=== PATIENT | female | born 1945 | race Caucasian/White ===

== ENCOUNTER 2021-05-31 14:44 | Inpatient (IN) | payer MEDICARE, OTHER, SELFPAY ==
--- NOTE | ~2021-05-31 | US_ITS ---
EXAMINATION: US ABDOMEN COMPLETE CLINICAL INFORMATION: Elevated LFTs. COMPARISON: None TECHNIQUE: Real-time imaging of the abdominal viscera. FINDINGS: PANCREAS: Not well visualized ABDOMINAL AORTA: There is evidence of atherosclerotic disease. The proximal, mid, and distal segments are normal in caliber. INFERIOR VENA CAVA: Visualized portions are normal. LIVER: The liver is normal in size. The liver contour is normal. Liver echotexture is increased. No focal hepatic lesion. There is no intrahepatic biliary duct dilatation seen. GALLBLADDER: There may be some sludge in the gallbladder. The gallbladder is physiologically distended without evidence of stones, polyps, wall thickening or pericholecystic fluid. COMMON BILE DUCT: Normal in caliber measuring 0.5 cm in diameter. RIGHT KIDNEY: Normal. No hydronephrosis. No renal calculi or focal parenchymal lesions. The kidney measures 10.2 cm in maximum dimension. LEFT KIDNEY: Normal. No hydronephrosis. No renal calculi or focal parenchymal lesions. The kidney measures 10.5 cm in maximum dimension. SPLEEN: Normal. The spleen measures 7.8 cm in maximum dimension. FREE FLUID: None. US/US abdomen complete IMPRESSION: Echogenic liver. Small amount of sludge in the gallbladder. Visualization of the pancreas. Atherosclerotic disease.
--- NOTE | 2021-05-31 16:00 | HO.PSYADMNOT ---
HPI Date of Service: 05/31/21 Chief Complaint: Unspecified anxiety disorder Sources of Information: patient interviewed, chart reviewed and crisis/core team assessment reviewed HPI Subjective Notes: Pereira Warning and 3 Day Narrative: Ms. Cardoso is a 75 year-old woman with hx of MDD who was brought to [facility] after suicide attempt. Per notes from [place], pt had wrote a note to her saying good bye.' She took unknown amount of percocet. She was admitted medically. She was given acetylcystine for elevated levels of acetaminophen. She had 2L oxygen but weaned off prior to discharge. Utox was negative. On the unit, pt presents as pleasant. She reports she has been feeling more overwhelmed, due to financial stressors, learned she has to replace roof, her had stroke last year and she is main caregiver. She adamantly denies suicidal ideation. She is tearful regretting OD. She states she would never do anything like that. She denies previous hx of suicide attempt. She denies hx of VH/AH. She reports remote treatment of MDD with sertraline but had GI side effects. She also reports she tried prozac but also had GI side effects. She does not want to start an antidepressant but open to referrals for therapy. She would like to be discharged as soon as possible. She reports good sleep. She reports fair appetite. Past Psychiatric History: Inpt: none OP: none Suicide attempts: none prior to this one Past med trials: sertraline (GI side effects), prozac (GI side effects), wellbutrin mostly for smoking cessation but reports side effects (unknown) Medical Evaluation Reviewed: Yes [facility] Medical History COPD (chronic obstructive pulmonary disease) Emphysema of lung Irritable bowel Surgical History H/O mastectomy Family History: denies Social History: lives with of over 50 years. 3 adult children. Substance History: none Trauma History: denies Diagnostics Labs Results: 06/02/21 06:50 06/01/21 08:34 Meds/Allergies Meds Home Medications Acetaminophen (Acetaminophen 325 Mg Tablet) 650 mg PO Q6H PRN PRN Reason: Headache/Pain Mild Scale (1-3) Al Hydroxide/Mg Hydroxide (Magnesium Hydrox/Alum Hydrox 30 Ml Oral.Susp) 30 ml PO Q6H PRN PRN Reason: Heartburn/Nausea Albuterol Sulfate (Albuterol Sulfate 90 Mcg 8 Gm Inhaler) 2 puff INHALE RQ6H PRN PRN Reason: shortness of breath; wheezing Last Admin: 06/01/21 13:22 Dose: 2 puff Documented by: Benzocaine (Throat Lozenge, Medicated Lozenge) 1 lozenge MUCOUS MEM Q2H PRN PRN Reason: Sore Throat Last Admin: 05/31/21 21:31 Dose: 1 lozenge Documented by: Hydroxyzine HCl (Hydroxyzine Hcl 25 Mg Tablet) 25 mg PO Q6H PRN PRN Reason: Anxiety Magnesium Hydroxide (Milk Of Magnesia 30 Ml Oral.Susp) 30 ml PO DAILY PRN PRN Reason: Constipation Trazodone HCl (Trazodone Hcl 50 Mg Tablet) 50 mg PO BEDTIME PRN PRN Reason: Insomnia Allergies Allergies Allergy/AdvReac Type Severity Reaction Status Date / Time latex AdvReac Unknown Unknown Verified 05/31/21 15:47 Mental Status Exam Mental Status Exam Narrative: Appearance: casually groomed, good hygiene, in NAD Behavior: calm, cooperative Psychomotor: no agitation or retardation noted Speech: clear, normal rate/rhythm/volume, spontaneous TP: linear TC: no signs of psychosis, feeling overwhelmed but remorseful of OD. Mood: better' Affect: congruent, brighter at times VH/AH: none SI/HI: none Delusions: none Insight/judgment: fair x 2. Memory/cog: alert, oriented x 3. not formally tested. Assessment & Plan Assessment & Plan (1) MDD (major depressive disorder), recurrent severe, without psychosis: Status: Acute Code(s): F33.2 - Major depressive disorder, recurrent severe without psychotic features Plan Ms. Cardoso is a 75 year-old woman with hx fo MDD admitted after suicide attempt, via OD on percocet, admitted medically at [place], given acetylcholyne infusion, briefly on nasal cannula 2L butweaned off prior to discharge from medical floor. Pt reports was overwhelmed, more than she thought she was due to financial stressors caring for who had stroke. Adamantly denies SI and regrets suicide attempt. We discussed risks , benefits and alternative treatment options. She declines starting antidepressant as she had 3 trials in past and according to her she had side effects, mostly GI. She is open to referral for therapy but declines medications. PLAN 1. Admit to [facility]- [facility] day, 15 minutes checks 2. declines starting antidepressant. 3. Obtain collateral info 4. Aftercare planning. Patient educated on: diagnosis Reason for continued inpatient stay Substantial Risk for: harm to self
[2021-05-31 16:17] VITALS: BP 179/92; PULSE 90; RESP 16; TEMP 36.8; O2SAT 94
[2021-05-31 16:19] VITALS: BMI 34.3
--- NOTE | 2021-05-31 18:27 | PC.NURSE ---
Patient arrived on unit this afternoon at approximately 1530 via stretcher. Patient was an admit from [facility] where she had been admitted and treated following an overdose of oxycodone/acetaminophen 5-325 as well as pantroprazole. Patient was admitted to a medical floor for management of acetaminophen opiate toxic ingestion. Upon admission patient vital signs were taken. BP noted to be elevated at 179/92. Vitals otherwise normal. Patient presented with pleasant demeanor. Alert and oriented x4. Denied SI/HI. Endorsed Anxiety/Depression 05/04. Patient appeared well groomed, neatly dressed in street clothes and was cooperative with admission process.During admission process patient stated that, I'm glad it (overdose) didn't work. I want to be here. 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 Patient is open to process and is future oriented. Upon completion of admission patient was oriented to unit, given coffee and waited patiently for her dinner. Appetite was good. Patient consumed 75% of meal. All releases were signed by patient other than psychiatrist and therapist which patient does not have at this time. Patient does have a PCP and a Speech Pathology Supervisor. Past medical history includes COPD/Emphysema, L breast CA, IBS which is under control. Other than vitamins patients only med is Ventolin inhaler which she uses as needed for wheezing. This is first Psych admission for patient who signed a CV and then a 3 day notice which will be up on 06/05/21. Patient was seen by Fatou Falcon. PCP will be notified during business hours tomorrow. Patient was last observed resting quietly in darkened room.
[2021-05-31 21:01] VITALS: BP 140/66; PULSE 77; RESP 17; TEMP 36.2; O2SAT 93
[2021-05-31] MEDS: Throat Lozenge, Medicated LOZENGE 1 LOZENGE MUCOUS MEM (21:31)
[2021-06-01 06:00] VITALS: BP 172/82; PULSE 81; TEMP 36.2; O2SAT 95
[2021-06-01 07:00] VITALS: BMI 32.1
[2021-06-01 09:04] LABS: Estimated Average Glucose 114 mg/dL; Hemoglobin A1c % 5.6 %
[2021-06-01 10:19] LABS: Alanine Aminotransferase 96 U/L (0-31); Albumin Level 4.5 g/dL (3.5-5.0); Alkaline Phosphatase 79 U/L (39-117); Anion Gap 11 (12-20); Aspartate Amino Transferase 73 U/L (5-31); Bilirubin Total 0.5 mg/dL (0.0-1.0); Blood Urea Nitrogen 13 mg/dL (9-16); Calcium 10.2 mg/dL (8.4-10.2); Carbon Dioxide 32 mmol/L (22-29); Chloride 102 mmol/L (96-108); Cholesterol 284 mg/dL; Creatinine Clr Calc Pharmacy 63.9; Estimated Glomerular Filt Rate > 60; Glucose Fasting 119 mg/dL (60-99); HDL Cholesterol 58 mg/dL; LDL Cholesterol Calculated 172 mg/dl; Sodium 141 mmol/L (135-145); Total Protein 7.8 g/dL (6.5-8.0); Triglycerides 271 mg/dL
[2021-06-01 10:39] LABS: Thyroid Stimulating Hormone 0.72 uIU/mL (0.32-4.0)
[2021-06-01 11:27] LABS: Folate > 20.0 ng/mL (> or = 4.0); Vitamin B12 719 pg/mL (200-900)
--- NOTE | 2021-06-01 13:20 | HO.PSYCHPN ---
Subjective Subjective Date of Service: 06/01/21 Reason For Visit: Unspecified anxiety disorder Subjective Notes: Conditional Voluntary Interim History: Pt continues to denied SI. Adamantly regrets OD. She reports I would never do anything like that She reports sleeping and eating well. No VH/AH. She wants to go home soon, continues to decline antidepressant even when explained that there are other options with less GI side effects. Review of Systems Review of Systems As above. Constitutional: Reports no additional constitutional complaints Cardiovascular: Denies dyspnea Respiratory: Denies dyspnea Gastrointestinal: Denies constipation and Denies nausea Mental Status Exam Mental Status Exam Narrative: Appearance: casually groomed, good hygiene, in NAD Behavior: calm, cooperative Psychomotor: no agitation or retardation noted Speech: clear, normal rate/rhythm/volume, spontaneous TP: linear TC: no signs of psychosis, feeling overwhelmed but remorseful of OD. Mood: better' Affect: congruent, brighter at times VH/AH: none SI/HI: none Delusions: none Insight/judgment: fair x 2. Memory/cog: alert, oriented x 3. not formally tested. Diagnostics Vital Signs (24Hr): Vital Signs - 24 hr 06/01/21 18:00 06/02/21 06:00 Temperature 97 F 97.8 F Pulse Rate 84 83 Respiratory Rate 16 16 Blood Pressure 139/77 195/82 H Pulse Oximetry 94 94 BMI result Body Mass Index 32.1 Labs Results: 06/02/21 06:50 06/01/21 08:34 Labs: Laboratory Results - last 48 hr 06/01/21 06/01/21 06/01/21 08:34 08:34 08:35 WBC RBC Hgb Hct MCV MCH MCHC RDW Plt Count MPV Immature Gran % (Auto) Neut % (Auto) Lymph % (Auto) [place] % (Auto) Eos % (Auto) Baso % (Auto) Lymph # (Auto) [place] # (Auto) Eos # (Auto) Baso # (Auto) Abs Immat Gran (auto) Absolute Neuts (auto) Absolute Nucleated RBC Nucleated RBC % (auto) PT INR Sodium 141 Potassium 4.0 Chloride 102 Carbon Dioxide 32 H Anion Gap 11 L BUN 13 Creatinine 0.80 Estim Creat Clear Calc 63.9 Estimated GFR > 60 Fasting Glucose 119 H Estimat Average Glucose 114 Hemoglobin A1c % 5.6 Calcium 10.2 Total Bilirubin 0.5 Direct Bilirubin AST 73 H ALT 96 H Alkaline Phosphatase 79 Total Protein 7.8 Albumin 4.5 Triglycerides 271 Cholesterol 284 LDL Cholesterol, Calc 172 HDL Cholesterol 58 Vitamin B12 719 Folate > 20.0 TSH 0.72 Hepatitis A IgM Ab Hep Bs Antigen Hep Bs Antibody Hep B Core Total Ab Hepatitis C Ab (EIA) 06/02/21 06/02/21 06/02/21 06:50 06:50 06:50 WBC 7.3 RBC 3.90 L Hgb 13.0 Hct 39.2 MCV 100.5 H MCH 33.3 H MCHC 33.2 RDW 12.7 Plt Count 286 MPV 9.4 Immature Gran % (Auto) 0.4 Neut % (Auto) 72.3 Lymph % (Auto) 15.9 L [place] % (Auto) 8.5 Eos % (Auto) 2.5 Baso % (Auto) 0.4 Lymph # (Auto) 1.2 [place] # (Auto) 0.6 Eos # (Auto) 0.2 Baso # (Auto) 0.0 Abs Immat Gran (auto) 0.03 Absolute Neuts (auto) 5.3 Absolute Nucleated RBC 0.000 Nucleated RBC % (auto) 0.0 PT 11.0 INR 1.0 Sodium Potassium Chloride Carbon Dioxide Anion Gap BUN Creatinine Estim Creat Clear Calc Estimated GFR Fasting Glucose Estimat Average Glucose Hemoglobin A1c % Calcium Total Bilirubin 0.6 Direct Bilirubin 0.2 AST 48 H ALT 82 H Alkaline Phosphatase 72 Total Protein 7.3 Albumin 4.2 Triglycerides Cholesterol LDL Cholesterol, Calc HDL Cholesterol Vitamin B12 Folate TSH Hepatitis A IgM Ab Hep Bs Antigen Hep Bs Antibody Hep B Core Total Ab Hepatitis C Ab (EIA) 06/02/21 06:50 WBC RBC Hgb Hct MCV MCH MCHC RDW Plt Count MPV Immature Gran % (Auto) Neut % (Auto) Lymph % (Auto) [place] % (Auto) Eos % (Auto) Baso % (Auto) Lymph # (Auto) [place] # (Auto) Eos # (Auto) Baso # (Auto) Abs Immat Gran (auto) Absolute Neuts (auto) Absolute Nucleated RBC Nucleated RBC % (auto) PT INR Sodium Potassium Chloride Carbon Dioxide Anion Gap BUN Creatinine Estim Creat Clear Calc Estimated GFR Fasting Glucose Estimat Average Glucose Hemoglobin A1c % Calcium Total Bilirubin Direct Bilirubin AST ALT Alkaline Phosphatase Total Protein Albumin Triglycerides Cholesterol LDL Cholesterol, Calc HDL Cholesterol Vitamin B12 Folate TSH Hepatitis A IgM Ab Nonreactive Hep Bs Antigen Negative Hep Bs Antibody NONREACTIVE Hep B Core Total Ab Nonreactive Hepatitis C Ab (EIA) Nonreactive Imaging Radiology Impressions: ITS Impressions Abdomen Ultrasound 06/02/21 08:45 IMPRESSION: Echogenic liver. Small amount of sludge in the gallbladder. Visualization of the pancreas. Atherosclerotic disease. Medications Medications Current Medications Acetaminophen (Acetaminophen 325 Mg Tablet) 650 mg PO Q6H PRN PRN Reason: Headache/Pain Mild Scale (1-3) Al Hydroxide/Mg Hydroxide (Magnesium Hydrox/Alum Hydrox 30 Ml Oral.Susp) 30 ml PO Q6H PRN PRN Reason: Heartburn/Nausea Albuterol Sulfate (Albuterol Sulfate 90 Mcg 8 Gm Inhaler) 2 puff INHALE RQ6H PRN PRN Reason: shortness of breath; wheezing Last Admin: 06/01/21 13:22 Dose: 2 puff Documented by: Benzocaine (Throat Lozenge, Medicated Lozenge) 1 lozenge MUCOUS MEM Q2H PRN PRN Reason: Sore Throat Last Admin: 05/31/21 21:31 Dose: 1 lozenge Documented by: Hydroxyzine HCl (Hydroxyzine Hcl 25 Mg Tablet) 25 mg PO Q6H PRN PRN Reason: Anxiety Magnesium Hydroxide (Milk Of Magnesia 30 Ml Oral.Susp) 30 ml PO DAILY PRN PRN Reason: Constipation Trazodone HCl (Trazodone Hcl 50 Mg Tablet) 50 mg PO BEDTIME PRN PRN Reason: Insomnia Allergies Allergies Allergy/AdvReac Type Severity Reaction Status Date / Time latex AdvReac Unknown Unknown Verified 05/31/21 15:47 Assessment & Plan Assessment & Plan (1) MDD (major depressive disorder), recurrent severe, without psychosis: Status: Acute Code(s): F33.2 - Major depressive disorder, recurrent severe without psychotic features Plan Ms. Cardoso is a 75 year-old woman with hx fo MDD admitted after suicide attempt, via OD on percocet, admitted medically at [place], given acetylcholyne infusion, briefly on nasal cannula 2L butweaned off prior to discharge from medical floor. Pt reports was overwhelmed, more than she thought she was due to financial stressors caring for who had stroke. Adamantly denies SI and regrets suicide attempt. We discussed risks , benefits and alternative treatment options. She declines starting antidepressant as she had 3 trials in past and according to her she had side effects, mostly GI. She is open to referral for therapy but declines medications. PLAN 1. Admit to [facility]- 3 day, 15 minutes checks 2. declines starting antidepressant. 3. Obtain collateral info 4. Aftercare planning. I spent minutes with the patient and/or on the patient floor today, greater than?50% of which was spent counseling/coordinating care. Reason for contiued inpatient stay Substantial Risk for: inability to function
[2021-06-01] MEDS: Albuterol Sulfate 90 MCG 8 GM INHALER 2 PUFF INHALE (13:22)
--- NOTE | 2021-06-01 13:27 | PM.IMCN ---
History of Present Illness Data of Consult Service Date: 06/01/21 Primary Care Provider: Sarah Beth Bay MD HPI Reason for consult: new admit 75-year-old female who was transferred from [facility] for suiccidal attemp , tyelenol toxicity: Patient received n-acetylcystenine as per normal hospital discharge papers., and sent to the [facility] for suicidal attempt. Patient seen and examined-she seems anxious, sitting with the family. Denies any new complaint of chest pain or shortness of breath or abdominal pain or fever or chills or nausea or vomiting Denies any cough Denies any weakness or numbness. Review of Systems Review of Systems: As above. [facility] Medical History COPD (chronic obstructive pulmonary disease) Emphysema of lung Irritable bowel Pertinent family history: Denies any family history including suicidal ideation, COPD. Surgical History H/O mastectomy Social History Household Members: Spouse Housing: House Do you presently have visiting nurse or other home services: No Patient Tobacco Use Status: Former Tobacco user Quit Date: 3 years Tobacco use type: Cigarette Smoked in Last 30 Days: No e-Cigarette/Vaping Use: Former Use Patient Interested in Nicotine Replacement: No Patient Given Instructions on How to Stop Smoking: No Second Hand Smoke Exposure: No Use of substances other than those prescribed or required for medical reasons: No Currently Displaying Signs/Symptoms of Drug Intoxication Withdrawal: No Have you been hit, kicked, punched, or otherwise hurt by someone within the past year? If so, by whom?: No Do you feel safe in your current relationship?: Yes Is there a partner from a previous relationship who is making you feel unsafe now?: No Are you made to feel afraid or neglected: No Advance Directives: Yes Advance Directives Information Provided: No Advance Directives on File: No Do you have thoughts of harming others: None Do you have a plan to hurt others: No Plan Recently lost weight without trying: No How much weight loss: Not applicable Eating poorly because of decreased appetite: Yes Nutrition screen score: 1 Patient : No : No Poor oral hygiene: No Meds Allergies Allergy/AdvReac Type Severity Reaction Status Date / Time latex AdvReac Unknown Unknown Verified 05/31/21 15:47 Active Medications: Current Medications Acetaminophen (Acetaminophen 325 Mg Tablet) 650 mg PO Q6H PRN PRN Reason: Headache/Pain Mild Scale (1-3) Al Hydroxide/Mg Hydroxide (Magnesium Hydrox/Alum Hydrox 30 Ml Oral.Susp) 30 ml PO Q6H PRN PRN Reason: Heartburn/Nausea Albuterol Sulfate (Albuterol Sulfate 90 Mcg 8 Gm Inhaler) 2 puff INHALE RQ6H PRN PRN Reason: shortness of breath; wheezing Last Admin: 06/01/21 13:22 Dose: 2 puff Documented by: Benzocaine (Throat Lozenge, Medicated Lozenge) 1 lozenge MUCOUS MEM Q2H PRN PRN Reason: Sore Throat Last Admin: 05/31/21 21:31 Dose: 1 lozenge Documented by: Hydroxyzine HCl (Hydroxyzine Hcl 25 Mg Tablet) 25 mg PO Q6H PRN PRN Reason: Anxiety Magnesium Hydroxide (Milk Of Magnesia 30 Ml Oral.Susp) 30 ml PO DAILY PRN PRN Reason: Constipation Trazodone HCl (Trazodone Hcl 50 Mg Tablet) 50 mg PO BEDTIME PRN PRN Reason: Insomnia Home Medications Medication Instructions Recorded Confirmed Last Taken Type Calcium 600 + D(3) 1 tab PO QAM MDD 1 05/31/21 05/31/21 Unknown History Multivitamin And Mineral 1 dose PO DAILY MDD 1 05/31/21 05/31/21 Unknown History albuterol 2 inhaler PO Q4-6H PRN MDD 2 05/31/21 05/31/21 Unknown History melatonin 2 mg PO NEEDED PRN MDD 2 05/31/21 05/31/21 Unknown History polycarbophil 1 dose PO DAILY MDD 1 05/31/21 05/31/21 Unknown History Physical Exam Vital Signs and Narrative: Vital Signs: Last Vital Signs Temp 97.1 F 05/31/21 21:01 Pulse 77 05/31/21 21:01 Resp 17 05/31/21 21:01 BP 140/66 H 05/31/21 21:01 Pulse Ox 93 05/31/21 21:01 BMI result Body Mass Index 34.3 Appearance: Alert.? Oriented X3.? not in distress.? Eyes: Pupils equal, round and reactive to light.? Sclera nonicteric.? ENT: Pharynx normal.? Moist mucous membranes. cvs: rrr, [id number]. res: clear to auscultation ,no rhonchii or wheezing abd: no rebound or guarding ,nt, bs present. ext pulses present , no cyanosis. neuro: axo3 , nonfocal. Results Labs CBC and Chem 7: 06/01/21 08:34 Labs: Laboratory Results - last 24 hr 06/01/21 06/01/21 06/01/21 08:34 08:34 08:35 Anion Gap 11 L Estim Creat Clear Calc 63.9 Estimated GFR > 60 Fasting Glucose 119 H Estimat Average Glucose 114 Hemoglobin A1c % 5.6 Calcium 10.2 Total Bilirubin 0.5 AST 73 H ALT 96 H Alkaline Phosphatase 79 Total Protein 7.8 Albumin 4.5 Triglycerides 271 Cholesterol 284 LDL Cholesterol, Calc 172 HDL Cholesterol 58 Vitamin B12 719 Folate > 20.0 TSH 0.72 Assessment and Plan (1) Elevated liver enzymes: Status: Acute Plan 75-year-old of female with history of COPD/emphysema, was admitted to [facility] for Tylenol toxicity received N-acetylcysteine, afterwards was afterward medical discharged and sent to the hospital for psychiatric evaluation for suicidal attempt. 1. COPD/emphysema: Continue home albuterol. 2. IBS: Denies any GI complaint currently, not on any medications as per patient. 3. Recent suicidal attempt with Tylenol as above. received N-acetylcysteine, afterwards was afterward medical clear Seems slightly elevated LFTs Otherwise and does not endorse any complaints. Please monitor LFT, consider GI evaluation Above management discussed with the psych team in detail length, please call us for any questions.
--- NOTE | 2021-06-01 16:23 | PM.GICN ---
History of Present Illness Data of Consult Service Date: 06/01/21 Requesting physician: Bethany Martell Primary Care Provider: Sarah Beth Bay MD HPI Reason for consult: elevated lft's ,reccent tylenol toxicity received Nacetylcystenie 75 YF transferred to [facility] Psyche from [facility] after management of acetaminophen toxicity with N acetyl cystine. On 05/28/21 Pt had an argument with her and took several tablets of percocet and codeine pills (from 3 bottles). On 05/29/21 She was taken to [facility] ED by paramedics. She was diagnosed with acute metabolic encephalopathy due to Opiod OD and treated with Narcan 2mg x 2 and became responsive She later regretted taking the medications and denied being suicidal anymore. Admission labs were normal hct 43.8, AST 26, ALT 36, TB 0.3, INR 1.1 Acetaminophen level was 53 on admission, decreased to 37 at 6 am, FU level was < 5 05/28/21 repeat labs showed elevated LFTs - AST 53, ALT 48, AP 87 Patient denies past hx of liver disease, hepatitis or jaundice. Pt admits to symptoms of heartburn and denies dysphagia, recent change in appetite. She admits to wt gain after she quitted smoking. Pt has IBS with constipation and takes 4 fiber pills a day. Denies recent change in bowel habits, diarrhea, black stools or rectal bleeding. Patient denies major cardiac or pulmonary problems. Denies being on chronic anticoagulation. Pt denies ETOH abuse and quitted smoking 3 yrs ago. Pt is and has 3 children. She worked at [employer]. Patient denies known family history of liver disease, colon polyps, other GI malignancies. Review of Systems Review of Systems: As above. Yes all other systems are reviewed and are negative [facility] Past Medical History Medical History COPD (chronic obstructive pulmonary disease) Emphysema of lung Irritable bowel Surgical History Surgical History H/O mastectomy Social History Social History Household Members: Spouse Housing: House Do you presently have visiting nurse or other home services: No Patient Tobacco Use Status: Former Tobacco user Quit Date: 3 years Tobacco use type: Cigarette e-Cigarette/Vaping Use: Former Use Second Hand Smoke Exposure: No service: No Sexual orientation: Straight/Heterosexual Meds Allergies Allergy/AdvReac Type Severity Reaction Status Date / Time latex AdvReac Unknown Unknown Verified 05/31/21 15:47 Active Medications: Current Medications Acetaminophen (Acetaminophen 325 Mg Tablet) 650 mg PO Q6H PRN PRN Reason: Headache/Pain Mild Scale (1-3) Al Hydroxide/Mg Hydroxide (Magnesium Hydrox/Alum Hydrox 30 Ml Oral.Susp) 30 ml PO Q6H PRN PRN Reason: Heartburn/Nausea Albuterol Sulfate (Albuterol Sulfate 90 Mcg 8 Gm Inhaler) 2 puff INHALE RQ6H PRN PRN Reason: shortness of breath; wheezing Last Admin: 06/01/21 13:22 Dose: 2 puff Documented by: Benzocaine (Throat Lozenge, Medicated Lozenge) 1 lozenge MUCOUS MEM Q2H PRN PRN Reason: Sore Throat Last Admin: 05/31/21 21:31 Dose: 1 lozenge Documented by: Hydroxyzine HCl (Hydroxyzine Hcl 25 Mg Tablet) 25 mg PO Q6H PRN PRN Reason: Anxiety Magnesium Hydroxide (Milk Of Magnesia 30 Ml Oral.Susp) 30 ml PO DAILY PRN PRN Reason: Constipation Trazodone HCl (Trazodone Hcl 50 Mg Tablet) 50 mg PO BEDTIME PRN PRN Reason: Insomnia Home Medications Medication Instructions Recorded Confirmed Last Taken Type Calcium 600 + D(3) 1 tab PO QAM MDD 1 05/31/21 05/31/21 Unknown History Multivitamin And Mineral 1 dose PO DAILY MDD 1 05/31/21 05/31/21 Unknown History albuterol 2 inhaler PO Q4-6H PRN MDD 2 05/31/21 05/31/21 Unknown History melatonin 2 mg PO NEEDED PRN MDD 2 05/31/21 05/31/21 Unknown History polycarbophil 1 dose PO DAILY MDD 1 05/31/21 05/31/21 Unknown History umeclidinium 62.5 mcg-vilanterol 1 inh INHALATION DAILY 06/01/21 06/01/21 Unknown History 25 mcg/actuation powdr for inhalation (Anoro Ellipta) Physical Exam Vital Signs: Vital Signs: Last Vital Signs Temp 97.1 F 05/31/21 21:01 Pulse 77 05/31/21 21:01 Resp 17 05/31/21 21:01 BP 140/66 H 05/31/21 21:01 Pulse Ox 93 05/31/21 21:01 BMI result Body Mass Index 34.3 Const: General: healthy appearing and no acute distress Nutritional Appearance: obese Orientation/consciousness: patient oriented x3 Limitations: no limitations HENMT: Head: Yes normal to inspection Ears: hearing grossly normal bilaterally Mouth: Normal oral and palatal mucosa present Eyes: Sclerae: sclerae normal Pupils: Equal, round and reactive pupils present Neck: Neck: Yes normal visual inspection Chest: Chest palpation & inspection: normal inspection of the chest Resp: Effort & Inspection: normal respiratory effort Auscultation: clear to auscultation bilaterally Cardio: Palpation: normal PMI Rate: regular rate Rhythm: regular rhythm Heart sounds: S1 normal heart sound present, S2 normal heart sound present and no murmurs GI: Palpation (GI): Soft to palpation, nontender and No hepatosplenomegaly present Auscultation: normal bowel sounds Rectal Exam - Female: deferred Skin: General skin exam: no rashes or lesions noted Neuro: General: patient oriented x3, gait normal and moves all extremities Cranial nerves: Yes Equal, round and reactive pupils present Psych: Appearance: grossly normal Mental Status: mental status grossly normal Results Labs CBC & Chem 7: 06/02/21 06:50 06/01/21 08:34 Labs: BMP 06/01/21 08:34 Sodium 141 Potassium 4.0 Chloride 102 Carbon Dioxide 32 H BUN 13 Creatinine 0.80 Calcium 10.2 Liver Function 06/01/21 Range/Units 08:34 Total Bilirubin 0.5 (0.0-1.0) mg/dL AST 73 H (5-31) U/L ALT 96 H (0-31) U/L Alkaline Phosphatase 79 (39-117) U/L Albumin 4.5 (3.5-5.0) g/dL Assessment and Plan (1) Elevated liver enzymes: Status: Deleted (2) Drug-induced hepatic toxicity: Status: Deleted Plan 75 YF seen at [facility] on 05/28/21 after drug overdose (pantoprazole, oxycodone and acetaminophen). Pt was treated with Narcan and N acetylcysteine. Pt noted to have elevated LFTs on presentation to [facility] which normalized prior to transfer to [facility] on 05/31/21. Recurrent increase in LFTs are likely related to acetaminophen hepatotoxicity versus HINOJOSA related to obesity. Other less likely possibilities include chronic Hep B or C or metabolic liver diseases. RECOMMENDATIONS: 1. Check Hepatitis serologies and abdominal US - order placed. 2. Repeat LFTs in the am I will follow once above studies are available. ADDENDUM FU labs showed improvement in LFTs Hepatitis A, B and C serologies were negative 06/02/21 ABD US SHOWED: LIVER: The liver is normal in size. The liver contour is normal. Liver echotexture is increased. No focal hepatic lesion. There is no intrahepatic biliary duct dilatation seen. GALLBLADDER: There may be some sludge in the gallbladder. The gallbladder is physiologically distended without evidence of stones, polyps, wall thickening or pericholecystic fluid. Procedures Date of Service Date of Service: 06/01/21
[2021-06-01 18:00] VITALS: BP 139/77; PULSE 84; RESP 16; TEMP 36.1; O2SAT 94
[2021-06-02 06:00] VITALS: BP 195/82; PULSE 83; RESP 16; TEMP 36.6; O2SAT 94
[2021-06-02 06:54] LABS: MANUAL DIFF FLAG NO
[2021-06-02 06:57] LABS: Basophils Percent Auto 0.4 % (0-2); Eosinophils Absolute Auto 0.2 X10*3/uL (0.0-0.4); Eosinophils Percent Auto 2.5 % (0-4); Hematocrit 39.2 % (37.0-47.0); Imm Gran Abs Auto 0.03 X10*3/uL (0.00-0.03); Imm Gran Pct Auto 0.4 % (0.0-0.4); Lymphocytes Absolute Auto 1.2 X10*3/uL (1.2-4.9); Lymphocytes Percent Auto 15.9 % (20-40); Mean Corpuscular HGB Conc 33.2 g/dl (31.0-35.0); Mean Corpuscular Hemoglobin 33.3 pg (27.0-33.0); Mean Corpuscular Volume 100.5 fL (80.0-98.0); Mean Platelet Volume 9.4 fL (9.4-12.3); Monocytes Absolute Auto 0.6 X10*3/uL (0.1-1.2); Monocytes Percent Auto 8.5 % (2-11); Neutrophils Absolute Auto 5.3 x10*3/uL (2.0-8.3); Neutrophils Percent Auto 72.3 % (45-73); Platelet Count 286 X10*3/uL (160-400); Red Cell Distribution Width 12.7 % (11.0-16.0); White Blood Count 7.3 X10*3/uL (4.8-10.8)
[2021-06-02 07:27] LABS: Alanine Aminotransferase 82 U/L (0-31); Albumin Level 4.2 g/dL (3.5-5.0); Alkaline Phosphatase 72 U/L (39-117); Aspartate Amino Transferase 48 U/L (5-31); Bilirubin Direct 0.2 mg/dL (0.0-0.5); Bilirubin Total 0.6 mg/dL (0.0-1.0); Total Protein 7.3 g/dL (6.5-8.0)
[2021-06-02 08:07] LABS: HBsAGNum1 0.19 S/CO (0.00-0.99); Hepatitis B Surface Antigen Negative (Negative)
[2021-06-02 08:52] LABS: HBS Num1 0.46 mIU/mL (0-7.99); Hepatitis A Antibody IgM 0.41 Index (0-0.79); Hepatitis B Core Antibody Nonreactive (Nonreactive); ~HepC Num1 0.38 S/CO (0.00-0.79); ~Hepatitis A Antibody IgM Nonreactive (Nonreactive); ~Hepatitis B Surface Antibody NONREACTIVE (Nonreactive); ~Hepatitis C Antibody Nonreactive (Nonreactive)
--- NOTE | 2021-06-02 14:40 | HO.PSYCHPN ---
Subjective Subjective Date of Service: 06/02/21 Reason For Visit: Unspecified anxiety disorder Subjective Notes: Conditional Voluntary and 3 Day Interim History: Pt pleasant. She continues to denied SI/HI. She regrets OD. She reports she can't wait to go back home and will follow up with referrals. Declines antidepressant due to past SE with 3 trials she had. Per nursing, pt is visible in unit, attends groups. No behavioral concerns. Medication Compliance: Yes Review of Systems Review of Systems As above. Constitutional: Reports no additional constitutional complaints Cardiovascular: Denies dyspnea Respiratory: Denies dyspnea Gastrointestinal: Denies constipation and Denies nausea Mental Status Exam Mental Status Exam Narrative: Appearance: casually groomed, good hygiene, in NAD Behavior: calm, cooperative Psychomotor: no agitation or retardation noted Speech: clear, normal rate/rhythm/volume, spontaneous TP: linear TC: no signs of psychosis, feeling overwhelmed but remorseful of OD. Mood: better' Affect: congruent, brighter at times VH/AH: none SI/HI: none Delusions: none Insight/judgment: fair x 2. Memory/cog: alert, oriented x 3. not formally tested. Diagnostics Vital Signs (24Hr): Vital Signs - 24 hr 06/01/21 18:00 06/02/21 06:00 Temperature 97 F 97.8 F Pulse Rate 84 83 Respiratory Rate 16 16 Blood Pressure 139/77 195/82 H Pulse Oximetry 94 94 BMI result Body Mass Index 32.1 Labs Results: 06/02/21 06:50 06/01/21 08:34 Labs: Laboratory Results - last 48 hr 06/01/21 06/01/21 06/01/21 08:34 08:34 08:35 WBC RBC Hgb Hct MCV MCH MCHC RDW Plt Count MPV Immature Gran % (Auto) Neut % (Auto) Lymph % (Auto) [place] % (Auto) Eos % (Auto) Baso % (Auto) Lymph # (Auto) [place] # (Auto) Eos # (Auto) Baso # (Auto) Abs Immat Gran (auto) Absolute Neuts (auto) Absolute Nucleated RBC Nucleated RBC % (auto) PT INR Sodium 141 Potassium 4.0 Chloride 102 Carbon Dioxide 32 H Anion Gap 11 L BUN 13 Creatinine 0.80 Estim Creat Clear Calc 63.9 Estimated GFR > 60 Fasting Glucose 119 H Estimat Average Glucose 114 Hemoglobin A1c % 5.6 Calcium 10.2 Total Bilirubin 0.5 Direct Bilirubin AST 73 H ALT 96 H Alkaline Phosphatase 79 Total Protein 7.8 Albumin 4.5 Triglycerides 271 Cholesterol 284 LDL Cholesterol, Calc 172 HDL Cholesterol 58 Vitamin B12 719 Folate > 20.0 TSH 0.72 Hepatitis A IgM Ab Hep Bs Antigen Hep Bs Antibody Hep B Core Total Ab Hepatitis C Ab (EIA) 06/02/21 06/02/21 06/02/21 06:50 06:50 06:50 WBC 7.3 RBC 3.90 L Hgb 13.0 Hct 39.2 MCV 100.5 H MCH 33.3 H MCHC 33.2 RDW 12.7 Plt Count 286 MPV 9.4 Immature Gran % (Auto) 0.4 Neut % (Auto) 72.3 Lymph % (Auto) 15.9 L [place] % (Auto) 8.5 Eos % (Auto) 2.5 Baso % (Auto) 0.4 Lymph # (Auto) 1.2 [place] # (Auto) 0.6 Eos # (Auto) 0.2 Baso # (Auto) 0.0 Abs Immat Gran (auto) 0.03 Absolute Neuts (auto) 5.3 Absolute Nucleated RBC 0.000 Nucleated RBC % (auto) 0.0 PT 11.0 INR 1.0 Sodium Potassium Chloride Carbon Dioxide Anion Gap BUN Creatinine Estim Creat Clear Calc Estimated GFR Fasting Glucose Estimat Average Glucose Hemoglobin A1c % Calcium Total Bilirubin 0.6 Direct Bilirubin 0.2 AST 48 H ALT 82 H Alkaline Phosphatase 72 Total Protein 7.3 Albumin 4.2 Triglycerides Cholesterol LDL Cholesterol, Calc HDL Cholesterol Vitamin B12 Folate TSH Hepatitis A IgM Ab Hep Bs Antigen Hep Bs Antibody Hep B Core Total Ab Hepatitis C Ab (EIA) 06/02/21 06:50 WBC RBC Hgb Hct MCV MCH MCHC RDW Plt Count MPV Immature Gran % (Auto) Neut % (Auto) Lymph % (Auto) [place] % (Auto) Eos % (Auto) Baso % (Auto) Lymph # (Auto) [place] # (Auto) Eos # (Auto) Baso # (Auto) Abs Immat Gran (auto) Absolute Neuts (auto) Absolute Nucleated RBC Nucleated RBC % (auto) PT INR Sodium Potassium Chloride Carbon Dioxide Anion Gap BUN Creatinine Estim Creat Clear Calc Estimated GFR Fasting Glucose Estimat Average Glucose Hemoglobin A1c % Calcium Total Bilirubin Direct Bilirubin AST ALT Alkaline Phosphatase Total Protein Albumin Triglycerides Cholesterol LDL Cholesterol, Calc HDL Cholesterol Vitamin B12 Folate TSH Hepatitis A IgM Ab Nonreactive Hep Bs Antigen Negative Hep Bs Antibody NONREACTIVE Hep B Core Total Ab Nonreactive Hepatitis C Ab (EIA) Nonreactive Imaging Radiology Impressions: ITS Impressions Abdomen Ultrasound 06/02/21 08:45 IMPRESSION: Echogenic liver. Small amount of sludge in the gallbladder. Visualization of the pancreas. Atherosclerotic disease. Medications Medications Current Medications Acetaminophen (Acetaminophen 325 Mg Tablet) 650 mg PO Q6H PRN PRN Reason: Headache/Pain Mild Scale (1-3) Al Hydroxide/Mg Hydroxide (Magnesium Hydrox/Alum Hydrox 30 Ml Oral.Susp) 30 ml PO Q6H PRN PRN Reason: Heartburn/Nausea Albuterol Sulfate (Albuterol Sulfate 90 Mcg 8 Gm Inhaler) 2 puff INHALE RQ6H PRN PRN Reason: shortness of breath; wheezing Last Admin: 06/01/21 13:22 Dose: 2 puff Documented by: Benzocaine (Throat Lozenge, Medicated Lozenge) 1 lozenge MUCOUS MEM Q2H PRN PRN Reason: Sore Throat Last Admin: 05/31/21 21:31 Dose: 1 lozenge Documented by: Hydroxyzine HCl (Hydroxyzine Hcl 25 Mg Tablet) 25 mg PO Q6H PRN PRN Reason: Anxiety Magnesium Hydroxide (Milk Of Magnesia 30 Ml Oral.Susp) 30 ml PO DAILY PRN PRN Reason: Constipation Pt Own: Anoro Ellipta 62.5/25 Mcg Inhaler 1 each INHALE RDAILY RAYRAY Trazodone HCl (Trazodone Hcl 50 Mg Tablet) 50 mg PO BEDTIME PRN PRN Reason: Insomnia Allergies Allergies Allergy/AdvReac Type Severity Reaction Status Date / Time latex AdvReac Unknown Unknown Verified 05/31/21 15:47 Assessment & Plan Assessment & Plan (1) MDD (major depressive disorder), recurrent severe, without psychosis: Status: Acute Code(s): F33.2 - Major depressive disorder, recurrent severe without psychotic features Plan Ms. Cardoso is a 75 year-old woman with hx fo MDD admitted after suicide attempt, via OD on percocet, admitted medically at [place], given acetylcholyne infusion, briefly on nasal cannula 2L butweaned off prior to discharge from medical floor. Pt reports was overwhelmed, more than she thought she was due to financial stressors caring for who had stroke. Adamantly denies SI and regrets suicide attempt. We discussed risks , benefits and alternative treatment options. She declines starting antidepressant as she had 3 trials in past and according to her she had side effects, mostly GI. She is open to referral for therapy but declines medications. PLAN 1. Admit to [facility]- 3 day, 15 minutes checks 2. declines starting antidepressant. 3. Obtain collateral info 4. Aftercare planning. I spent minutes with the patient and/or on the patient floor today, greater than?50% of which was spent counseling/coordinating care. Reason for contiued inpatient stay Substantial Risk for: inability to function
[2021-06-02 18:00] VITALS: PULSE 87; RESP 18; TEMP 35.8; O2SAT 95
[2021-06-03 06:00] VITALS: BP 156/80; PULSE 83; RESP 14; TEMP 36.4; O2SAT 95
[2021-06-03 18:00] VITALS: BP 152/67; PULSE 72; RESP 18; TEMP 36.2; O2SAT 94
--- NOTE | 2021-06-03 19:32 | HO.PSYCHPN ---
Subjective Subjective Date of Service: 06/03/21 Reason For Visit: Unspecified anxiety disorder Subjective Notes: 3 Day Medical Problems Affecting Mental Status: No Interim History: denies current SI, regrets overdose, wants to go home Saturday. compliant with meds; denies side effects. no complaints Medication Compliance: Yes Side effects from medications: No Attending Groups: Yes Review of Systems Acute medical concerns: No Medical Review of Systems: unchanged Review of Systems Review of Systems BP elevated but trending down Mental Status Exam Mental Status Exam Narrative: Appearance: casually groomed, good hygiene, in NAD Behavior: calm, cooperative Psychomotor: no agitation or retardation noted Speech: clear, normal rate/rhythm/volume, spontaneous TP: linear TC: no signs of psychosis, feeling overwhelmed but remorseful of OD. Mood: better' Affect: congruent, brighter at times VH/AH: none SI/HI: none Delusions: none Insight/judgment: fair x 2. Memory/cog: alert, oriented x 3. not formally tested. Diagnostics Vital Signs (24Hr): Vital Signs - 24 hr 06/03/21 06:00 Temperature 97.6 F Pulse Rate 83 Respiratory Rate 14 Blood Pressure 156/80 H Pulse Oximetry 95 BMI result Body Mass Index 32.1 Labs Results: 06/02/21 06:50 06/01/21 08:34 Labs: Laboratory Results - last 48 hr 06/02/21 06/02/21 06/02/21 06:50 06:50 06:50 WBC 7.3 RBC 3.90 L Hgb 13.0 Hct 39.2 MCV 100.5 H MCH 33.3 H MCHC 33.2 RDW 12.7 Plt Count 286 MPV 9.4 Immature Gran % (Auto) 0.4 Neut % (Auto) 72.3 Lymph % (Auto) 15.9 L [place] % (Auto) 8.5 Eos % (Auto) 2.5 Baso % (Auto) 0.4 Lymph # (Auto) 1.2 [place] # (Auto) 0.6 Eos # (Auto) 0.2 Baso # (Auto) 0.0 Abs Immat Gran (auto) 0.03 Absolute Neuts (auto) 5.3 Absolute Nucleated RBC 0.000 Nucleated RBC % (auto) 0.0 PT 11.0 INR 1.0 Total Bilirubin 0.6 Direct Bilirubin 0.2 AST 48 H ALT 82 H Alkaline Phosphatase 72 Total Protein 7.3 Albumin 4.2 Hepatitis A IgM Ab Hep Bs Antigen Hep Bs Antibody Hep B Core Total Ab Hepatitis C Ab (EIA) 06/02/21 06:50 WBC RBC Hgb Hct MCV MCH MCHC RDW Plt Count MPV Immature Gran % (Auto) Neut % (Auto) Lymph % (Auto) [place] % (Auto) Eos % (Auto) Baso % (Auto) Lymph # (Auto) [place] # (Auto) Eos # (Auto) Baso # (Auto) Abs Immat Gran (auto) Absolute Neuts (auto) Absolute Nucleated RBC Nucleated RBC % (auto) PT INR Total Bilirubin Direct Bilirubin AST ALT Alkaline Phosphatase Total Protein Albumin Hepatitis A IgM Ab Nonreactive Hep Bs Antigen Negative Hep Bs Antibody NONREACTIVE Hep B Core Total Ab Nonreactive Hepatitis C Ab (EIA) Nonreactive Imaging Radiology Impressions: ITS Impressions Abdomen Ultrasound 06/02/21 08:45 IMPRESSION: Echogenic liver. Small amount of sludge in the gallbladder. Visualization of the pancreas. Atherosclerotic disease. Medications Medications Current Medications Acetaminophen (Acetaminophen 325 Mg Tablet) 650 mg PO Q6H PRN PRN Reason: Headache/Pain Mild Scale (1-3) Al Hydroxide/Mg Hydroxide (Magnesium Hydrox/Alum Hydrox 30 Ml Oral.Susp) 30 ml PO Q6H PRN PRN Reason: Heartburn/Nausea Albuterol Sulfate (Albuterol Sulfate 90 Mcg 8 Gm Inhaler) 2 puff INHALE RQ6H PRN PRN Reason: shortness of breath; wheezing Last Admin: 06/01/21 13:22 Dose: 2 puff Documented by: Benzocaine (Throat Lozenge, Medicated Lozenge) 1 lozenge MUCOUS MEM Q2H PRN PRN Reason: Sore Throat Last Admin: 05/31/21 21:31 Dose: 1 lozenge Documented by: Hydroxyzine HCl (Hydroxyzine Hcl 25 Mg Tablet) 25 mg PO Q6H PRN PRN Reason: Anxiety Magnesium Hydroxide (Milk Of Magnesia 30 Ml Oral.Susp) 30 ml PO DAILY PRN PRN Reason: Constipation Pt Own: Anoro Ellipta 62.5/25 Mcg Inhaler 1 each INHALE RDAILY RAYRAY Last Admin: 06/03/21 14:53 Dose: 1 each Documented by: Trazodone HCl (Trazodone Hcl 50 Mg Tablet) 50 mg PO BEDTIME PRN PRN Reason: Insomnia Allergies Allergies Allergy/AdvReac Type Severity Reaction Status Date / Time latex AdvReac Unknown Unknown Verified 05/31/21 15:47 Assessment & Plan Assessment & Plan (1) MDD (major depressive disorder), recurrent severe, without psychosis: Status: Acute Code(s): F33.2 - Major depressive disorder, recurrent severe without psychotic features Plan Ms. Cardoso is a 75 year-old woman with hx fo MDD admitted after suicide attempt, via OD on percocet, admitted medically at [place], given acetylcholyne infusion, briefly on nasal cannula 2L butweaned off prior to discharge from medical floor. Pt reports was overwhelmed, more than she thought she was due to financial stressors caring for who had stroke. Adamantly denies SI and regrets suicide attempt. We discussed risks , benefits and alternative treatment options. She declines starting antidepressant as she had 3 trials in past and according to her she had side effects, mostly GI. She is open to referral for therapy but declines medications. CONTINUE PLAN 1. Admit to [facility]- 3 day, 15 minutes checks 2. declines starting antidepressant. 3. Obtain collateral info 4. Aftercare planning. I spent ___15___ minutes with the patient and/or on the patient floor today, greater than?50% of which was spent counseling/coordinating care. Reason for contiued inpatient stay Substantial Risk for: harm to self, inability to function, rapid decompensation and med/psych decompensation
[2021-06-03] MEDS: traZODone HCL 50 MG TABLET PO (20:37)
[2021-06-04 07:50] LABS: Alanine Aminotransferase 57 U/L (0-31); Albumin Level 4.2 g/dL (3.5-5.0); Alkaline Phosphatase 70 U/L (39-117); Aspartate Amino Transferase 29 U/L (5-31); Bilirubin Direct 0.2 mg/dL (0.0-0.5); Bilirubin Total 0.6 mg/dL (0.0-1.0); Total Protein 7.4 g/dL (6.5-8.0)
[2021-06-04 08:02] VITALS: BP 138/77; PULSE 78; RESP 16; TEMP 36.7; O2SAT 96
--- NOTE | 2021-06-04 14:45 | P.PNPSI_ITS ---
Subjective Subjective Date of Service: 06/04/21 Reason For Visit: Unspecified anxiety disorder Subjective Notes: Conditional Voluntary Interim History: pt calm, slightly brighter, no sedation, visible on unti, denies complaints. denies SI or HI. Medication Compliance: Yes Side effects from medications: No Attending Groups: Yes Review of Systems Acute medical concerns: No Medical Review of Systems: unchanged Review of Systems Review of Systems BP elevated but trending down Constitutional: Reports no additional constitutional complaints Cardiovascular: Denies dyspnea Respiratory: Denies dyspnea Gastrointestinal: Denies constipation and Denies nausea Mental Status Exam Mental Status Exam Narrative: Appearance: casually groomed, good hygiene, in NAD Behavior: calm, cooperative Psychomotor: no agitation or retardation noted Speech: clear, normal rate/rhythm/volume, spontaneous TP: linear TC: no signs of psychosis, feeling overwhelmed but remorseful of OD. Mood: better' Affect: congruent, brighter at times VH/AH: none SI/HI: none Delusions: none Insight/judgment: fair x 2. Memory/cog: alert, oriented x 3. not formally tested. Diagnostics Vital Signs (24Hr): Vital Signs - 24 hr 06/03/21 18:00 06/04/21 08:02 Temperature 97.2 F 98.1 F Pulse Rate 72 78 Respiratory Rate 18 16 Blood Pressure 152/67 H 138/77 Pulse Oximetry 94 96 BMI result Body Mass Index 32.1 Labs Results: 06/02/21 06:50 06/01/21 08:34 Labs: Laboratory Results - last 48 hr 06/04/21 07:17 Total Bilirubin 0.6 Direct Bilirubin 0.2 AST 29 ALT 57 H Alkaline Phosphatase 70 Total Protein 7.4 Albumin 4.2 Imaging Radiology Impressions: ITS Impressions Abdomen Ultrasound 06/02/21 08:45 IMPRESSION: Echogenic liver. Small amount of sludge in the gallbladder. Visualization of the pancreas. Atherosclerotic disease. Medications Medications Current Medications Acetaminophen (Acetaminophen 325 Mg Tablet) 650 mg PO Q6H PRN PRN Reason: Headache/Pain Mild Scale (1-3) Al Hydroxide/Mg Hydroxide (Magnesium Hydrox/Alum Hydrox 30 Ml Oral.Susp) 30 ml PO Q6H PRN PRN Reason: Heartburn/Nausea Albuterol Sulfate (Albuterol Sulfate 90 Mcg 8 Gm Inhaler) 2 puff INHALE RQ6H PRN PRN Reason: shortness of breath; wheezing Last Admin: 06/01/21 13:22 Dose: 2 puff Documented by: Benzocaine (Throat Lozenge, Medicated Lozenge) 1 lozenge MUCOUS MEM Q2H PRN PRN Reason: Sore Throat Last Admin: 05/31/21 21:31 Dose: 1 lozenge Documented by: Hydroxyzine HCl (Hydroxyzine Hcl 25 Mg Tablet) 25 mg PO Q6H PRN PRN Reason: Anxiety Magnesium Hydroxide (Milk Of Magnesia 30 Ml Oral.Susp) 30 ml PO DAILY PRN PRN Reason: Constipation Pt Own: Anoro Ellipta 62.5/25 Mcg Inhaler 1 each INHALE RDAILY RAYRAY Last Admin: 06/04/21 08:40 Dose: 1 each Documented by: Trazodone HCl (Trazodone Hcl 50 Mg Tablet) 50 mg PO BEDTIME PRN PRN Reason: Insomnia Last Admin: 06/03/21 20:37 Dose: 50 mg Documented by: Allergies Allergies Allergy/AdvReac Type Severity Reaction Status Date / Time latex AdvReac Unknown Unknown Verified 05/31/21 15:47 Assessment & Plan Assessment & Plan (1) MDD (major depressive disorder), recurrent severe, without psychosis: Status: Acute Code(s): F33.2 - Major depressive disorder, recurrent severe without psychotic features Plan Ms. Cardoso is a 75 year-old woman with hx fo MDD admitted after suicide attempt, via OD on percocet, admitted medically at [place], given acetylcholyne infusion, briefly on nasal cannula 2L butweaned off prior to discharge from medical floor. Pt reports was overwhelmed, more than she thought she was due to financial stressors caring for who had stroke. Adamantly denies SI and regrets suicide attempt. We discussed risks , benefits and alternative treatment options. She declines starting antidepressant as she had 3 trials in past and according to her she had side effects, mostly GI. She is open to referral for therapy but declines medications. 06/04/21 CONTINUE PLAN 1. Admit to [facility]- 3 day, 15 minutes checks 2. declines starting antidepressant. 3. Obtain collateral info 4. Aftercare planning. I spent __15____ minutes with the patient and/or on the patient floor today, greater than?50% of which was spent counseling/coordinating care. Patient educated on: medication risk/benefits and therapeutic strategies Informed Consent: understands and further education needed Reason for contiued inpatient stay Substantial Risk for: harm to self, inability to function and rapid decompensation
[2021-06-04] MEDS: traZODone HCL 50 MG TABLET PO (20:10)
[2021-06-04 21:11] VITALS: BP 121/62; PULSE 78; RESP 18; TEMP 36.3; O2SAT 95
--- NOTE | 2021-06-05 07:34 | PM.PSYDC ---
DS: Providers Provider Date of Service: 06/05/21 Date of admission: 05/31/21 14:44 Primary care physician: Sarah Beth Bay MD Consults: 05/31/21 15:54 Consult to Hospitalist Routine Consulting Provider: Hospitalist Reason For Exam: routine 06/01/21 14:56 Consult to Gastroenterology Routine Consulting Provider: [facility] Reason for consultation: elevated lft's ,reccent tylenol toxicity received Nacetylcystenie Has provider been notified: No DS: Diagnosis Discharge Diagnosis (1) MDD (major depressive disorder), recurrent severe, without psychosis: Status: Acute DS: Medications Discharge Medications Home Medications: Home Medications Medication Instructions Recorded Confirmed Calcium 600 + D(3) 1 tab PO QAM MDD 1 05/31/21 05/31/21 Multivitamin And Mineral 1 dose PO DAILY MDD 1 05/31/21 05/31/21 albuterol 2 inhaler PO Q4-6H PRN MDD 2 05/31/21 05/31/21 melatonin 2 mg PO NEEDED PRN MDD 2 05/31/21 05/31/21 polycarbophil 1 dose PO DAILY MDD 1 05/31/21 05/31/21 umeclidinium 62.5 mcg-vilanterol 1 inh INHALATION DAILY 06/01/21 06/01/21 25 mcg/actuation powdr for inhalation (Anoro Ellipta) Mental Status Exam Mental Status Exam Narrative: Appearance: casually groomed, good hygiene, in NAD Behavior: calm, cooperative Psychomotor: no agitation or retardation noted Speech: clear, normal rate/rhythm/volume, spontaneous TP: linear TC: no signs of psychosis, feeling overwhelmed but remorseful of OD. Mood: better' Affect: congruent, brighter at times VH/AH: none SI/HI: none Delusions: none Insight/judgment: fair x 2. Memory/cog: alert, oriented x 3. not formally tested. Data Data Completed and Pending Completed studies during hospitalization [Text1]: 06/01/21 06/01/21 06/01/21 08:34 08:34 08:35 WBC RBC Hgb Hct MCV MCH MCHC RDW Plt Count MPV Immature Gran % (Auto) Neut % (Auto) Lymph % (Auto) [place] % (Auto) Eos % (Auto) Baso % (Auto) Lymph # (Auto) [place] # (Auto) Eos # (Auto) Baso # (Auto) Abs Immat Gran (auto) Absolute Neuts (auto) Absolute Nucleated RBC Nucleated RBC % (auto) PT INR Sodium 141 Potassium 4.0 Chloride 102 Carbon Dioxide 32 H Anion Gap 11 L BUN 13 Creatinine 0.80 Estim Creat Clear Calc 63.9 Estimated GFR > 60 Fasting Glucose 119 H Estimat Average Glucose 114 Hemoglobin A1c % 5.6 Calcium 10.2 Total Bilirubin 0.5 Direct Bilirubin AST 73 H ALT 96 H Alkaline Phosphatase 79 Total Protein 7.8 Albumin 4.5 Triglycerides 271 Cholesterol 284 LDL Cholesterol, Calc 172 HDL Cholesterol 58 Vitamin B12 719 Folate > 20.0 TSH 0.72 Hepatitis A IgM Ab Hep Bs Antigen Hep Bs Antibody Hep B Core Total Ab Hepatitis C Ab (EIA) 06/02/21 06/02/21 06/02/21 06:50 06:50 06:50 WBC 7.3 RBC 3.90 L Hgb 13.0 Hct 39.2 MCV 100.5 H MCH 33.3 H MCHC 33.2 RDW 12.7 Plt Count 286 MPV 9.4 Immature Gran % (Auto) 0.4 Neut % (Auto) 72.3 Lymph % (Auto) 15.9 L Montgomery % (Auto) 8.5 Eos % (Auto) 2.5 Baso % (Auto) 0.4 Lymph # (Auto) 1.2 Montgomery # (Auto) 0.6 Eos # (Auto) 0.2 Baso # (Auto) 0.0 Abs Immat Gran (auto) 0.03 Absolute Neuts (auto) 5.3 Absolute Nucleated RBC 0.000 Nucleated RBC % (auto) 0.0 PT 11.0 INR 1.0 Sodium Potassium Chloride Carbon Dioxide Anion Gap BUN Creatinine Estim Creat Clear Calc Estimated GFR Fasting Glucose Estimat Average Glucose Hemoglobin A1c % Calcium Total Bilirubin 0.6 Direct Bilirubin 0.2 AST 48 H ALT 82 H Alkaline Phosphatase 72 Total Protein 7.3 Albumin 4.2 Triglycerides Cholesterol LDL Cholesterol, Calc HDL Cholesterol Vitamin B12 Folate TSH Hepatitis A IgM Ab Hep Bs Antigen Hep Bs Antibody Hep B Core Total Ab Hepatitis C Ab (EIA) 06/02/21 06/04/21 06:50 07:17 WBC RBC Hgb Hct MCV MCH MCHC RDW Plt Count MPV Immature Gran % (Auto) Neut % (Auto) Lymph % (Auto) [place] % (Auto) Eos % (Auto) Baso % (Auto) Lymph # (Auto) [place] # (Auto) Eos # (Auto) Baso # (Auto) Abs Immat Gran (auto) Absolute Neuts (auto) Absolute Nucleated RBC Nucleated RBC % (auto) PT INR Sodium Potassium Chloride Carbon Dioxide Anion Gap BUN Creatinine Estim Creat Clear Calc Estimated GFR Fasting Glucose Estimat Average Glucose Hemoglobin A1c % Calcium Total Bilirubin 0.6 Direct Bilirubin 0.2 AST 29 ALT 57 H Alkaline Phosphatase 70 Total Protein 7.4 Albumin 4.2 Triglycerides Cholesterol LDL Cholesterol, Calc HDL Cholesterol Vitamin B12 Folate TSH Hepatitis A IgM Ab Nonreactive Hep Bs Antigen Negative Hep Bs Antibody NONREACTIVE Hep B Core Total Ab Nonreactive Hepatitis C Ab (EIA) Nonreactive Imaging Diagnostic Imaging Impressions Abdomen Ultrasound 06/02/21 08:45 IMPRESSION: Echogenic liver. Small amount of sludge in the gallbladder. Visualization of the pancreas. Atherosclerotic disease. DS: Summary Hospital Course Hospital Course: Ms. Cardoso is a 75 year-old woman with hx of MDD who was brought to [facility] after suicide attempt. Per notes from [facility], pt had wrote a note to her saying good bye.' She took unknown amount of percocet. She was admitted medically. She was given acetylcystine for elevated levels of acetaminophen. She had 2L oxygen but weaned off prior to discharge. Utox was negative. On the unit, pt presents as pleasant. She reports she has been feeling more overwhelmed, due to financial stressors, learned she has to replace roof, her had stroke last year and she is main caregiver. She adamantly denies suicidal ideation. She is tearful regretting OD. She states she would never do anything like that. She denies previous hx of suicide attempt. She denies hx of VH/AH. She reports remote treatment of MDD with sertraline but had GI side effects. She also reports she tried prozac but also had GI side effects. She does not want to start an antidepressant but open to referrals for therapy. She would like to be discharged as soon as possible. She reports good sleep. She reports fair appetite. Past Psychiatric History: Inpt: none OP: none Suicide attempts: none prior to this one Past med trials: sertraline (GI side effects), prozac (GI side effects), wellbutrin mostly for smoking cessation but reports side effects (unknown) Medical Evaluation Reviewed: Yes HOSPITAL COURSE On the unit, Mrs. Cardoso was admitted on a CV and placed on 15 minutes checks. She adamantly denied suicidal or homicidal ideation. She reports feeling more overwhelmed than she had realized due to multiple stressor. We discussed risks, benefits and alternative treatment options, she declined starting antidepressant due to past trials with side effects. She did agree to be referred to therapy. Collateral information gathered from daughter and who denied safety concern at time of discharge and agreed with aftercare plan. Daughter reported pt appeared in much improved condition agreed to support pt in terms of medication management and follow through with therapy referral. Status at Discharge Cognitive/behavioral status at discharge: Mrs. Cardoso presents with bright, non labile affect. No SI/HI. No signs of psychosis or delusional content. Pt sleeping and eating well. No signs of aggression towards self or others. She presents as future oriented evidenced by statements related to looking forward to see family, continue OP psych tx. Functional status at discharge: independent ambulation Overall status at discharge: patient is progressing back to baseline Time Spent with Patient Time attestation: Total time spent providing and/or coordinating discharge services: Time spent: Greater than 30 minutes Discharge Plan Discharge Patient Disposition: Home, Self-Care Discharge Diagnosis: MDD, recurrent, moderate Referrals: [facility] [Other] - 3-5 Days (Referral made for outpatient therapists for 1:1 individual counseling. You will be placed on wait lists and be called when a clinician is assigned to you. Please call and follow up as needed to see where you are on wait list at the above number.) Sarah Beth Bay MD [Primary Care Provider] - 06/09/21 10:20 am Discharge Medications: Continued albuterol 90 mcg inhaler 2 inhaler PO Q4-6H MDD 2 PRN (Reason: Respiratory Distress) 0RF Rx Instructions: Q6H PRN wheezing Calcium 600 + D(3) tablet 1 tab PO QAM MDD 1 0RF Rx Instructions: 1 tab by mouth daily Multivitamin And Mineral tablet 1 dose PO DAILY MDD 1 0RF melatonin 1 mg tablet 2 mg PO NEEDED MDD 2 PRN (Reason: Insomnia) 0RF polycarbophil tablet 1 dose PO DAILY MDD 1 0RF Anoro Ellipta 62.5-25 mcg/actuation Blister With Device 1 inh INHALATION DAILY 0RF Discharge Orders: Discharge Order (Routine); Ordered 06/05/21 Ordered By: Fatou Falcon Diet: regular diet Activity on Discharge: As tolerated Stand Alone Forms: Patient Portal Discharge page, Community Support Care Plan Goals: 1. Maintain mood 2. No SI/HI Health Concerns: Follow up with PCP Plan of Treatment: 1. Take medications as prescribed 2. Go to nearest ED or call 911 in event of emergency Assessment: Pt with brighter affect, future oriented. No SI/HI. No signs of aggression towards self or others. Discharge Date/Time: 06/05/21 11:00
== END 2021-06-05 11:00 | disposition home or self-care (01) | DRG 885 ==
PROVIDERS: Internal Medicine Gastroenterology; Social Worker; Admitting Provider Psychiatry & Neurology Psychiatry; PCP Family Medicine; Visit Provider Psychiatry & Neurology Psychiatry
DX: F33.2 Major depressive disorder, recurrent severe without psychotic features (principal); J43.9 Emphysema, unspecified; K71.9 Toxic liver disease, unspecified; K58.9 Irritable bowel syndrome, unspecified; K75.81 Nonalcoholic steatohepatitis (NASH); E66.9 Obesity, unspecified; Z68.32 Body mass index [BMI] 32.0-32.9, adult; Z91.51 Personal history of suicidal behavior; Z85.3 Personal history of malignant neoplasm of breast; Z87.891 Personal history of nicotine dependence; Z79.899 Other long term (current) drug therapy
CPT/HCPCS: 36415; 76700; 80053; 80061; 80076; 82607; 82746; 83036; 84443; 85025; 85610; 86704; 86706; 86709; 86803; 87340